=== PATIENT | female | born 1985 | race Caucasian/White ===

== ENCOUNTER → 2017-11-27 21:26 | Outpatient (CLI) | payer OTHER, SELFPAY ==
[2017-11-27 21:51] LABS: Anion Gap 5 (5-15); BUN 10 mg/dL (7-18); BUN/Creat Ratio 13.5 RATIO (10-20); Calcium,Total 9.1 mg/dL (8.5-10.1); Chloride 101 mmol/L (98-107); Creatinine, Serum 0.74 mg/dL (0.55-1.02); EST Glomerular Filtration Rate 98 mL/min (>60); Est Glom Filt Rate - Afr Amer 118 mL/min (>60); Glucose 83 mg/dL (74-106); Potassium 4.2 mmol/L (3.5-5.1); Sodium Level 137 mmol/L (136-145)
== END ==
PROVIDERS: Visit Provider Nurse Practitioner
DX: I10 Essential (primary) hypertension (principal)
CPT/HCPCS: 80048

== ENCOUNTER 2017-12-10 20:34 | Emergency (ER) | payer OTHER, SELFPAY ==
[2017-12-10 20:36] VITALS: BP 161/105; PULSE 94; RESP 17; TEMP 36.9; O2SAT 100; BMI 30.9
--- NOTE | 2017-12-10 20:42 | ED.RN ---
NO OLD EKG'S IN MUSE
[2017-12-10 20:57] VITALS: O2SAT 95
[2017-12-10 21:06] LABS: Absolute Lymphocyte Count 2.92 X10^3/ul (0.83-4.51); Absolute Neutrophil Count 5.6 X10^3/uL (2.0-7.7); Basophil# 0.04 X10^3/uL; Basophil% 0.4 % (0-1); Eosinophil# 0.08 X10^3/uL; Eosinophils% 0.9 % (0-5); Hematocrit 39.3 % (37-47); Hemoglobin 12.4 g/dl (12.0-15.0); Lymphocyte # 2.92 X10^3/ul (4.0); Mean Corp Hgb Conc 31.6 g/gl (32-36); Mean Corpuscular Hgb 28.8 pg (27.0-32.0); Mean Corpuscular Volume 91.4 fL (81-99); Mean Platelet Vol. 9.6 fl (6.2-12.0); Monocyte# 0.49 X10^3/uL; Monocyte% 5.4 % (0-10); Neutrophil # 5.58 X10^3/uL (2.7-7.7); Neutrophil % 61.2 % (47-70); Platelet Count 400 K/mm3 (150-450); RBC Distribution Width CV 13.6 % (11.6-14.6); RBC Distribution Width SD 45.2 fl (35.1-43.9); White Blood Count 9.1 K/mm3 (4.4-11.0)
[2017-12-10 21:07] LABS: POSITIVE COUNT NO; POSITIVE DIFFERENTIAL NO; POSITIVE MORPHOLOGY NO
[2017-12-10 21:19] LABS: Anion Gap 7 (5-15); BUN 9 mg/dL (7-18); BUN/Creat Ratio 11.1 RATIO (10-20); Calcium,Total 8.9 mg/dL (8.5-10.1); Chloride 104 mmol/L (98-107); Creatinine, Serum 0.81 mg/dL (0.55-1.02); EST Glomerular Filtration Rate 88 mL/min (>60); Est Glom Filt Rate - Afr Amer 107 mL/min (>60); Estimated Creatinine Clearance 91.38 ml/min; Glucose 93 mg/dL (74-106); Potassium 3.4 mmol/L (3.5-5.1); Sodium Level 139 mmol/L (136-145)
[2017-12-10 21:35] VITALS: BP 142/74; PULSE 82; RESP 15; O2SAT 99
[2017-12-10 22:00] VITALS: BP 133/79; PULSE 75; RESP 15; O2SAT 99
[2017-12-10 22:00] LABS: D-Dimer Quantitative (DVT/PE) < 0.27 FEU/ug/m (0.27-0.49)
--- NOTE | 2017-12-10 22:36 | ED.VISSUMM ---
- ER Visit Summary Date of Service: 12/10/17 Chief Complaint: Chest pain History of Present Illness: The patient is a 32 F with intermittent chest pain over the past 5 days. Patient states she was prescribed lisinopril on Saturday, and symptoms started after that first dose. She only took that one dose. Patient describes intermittent pressure sensation with occasional sharp pain up through the sternal area. She does seem to get short of breath when this occurs. It can occur with activity or at rest. She has had periods over the past 5 days when she is completely pain-free as well. Patient does note she has had more reflux symptoms over the past several days as well. Physical Examination: Blood pressure in triage is 161/105, but at the time of my examination blood pressure is 138/78. Vital signs are otherwise unremarkable. Patient is in no acute distress and is nontoxic appearing. Head and neck examination is normal. Heart is regular rate and rhythm. Palpable pulses are noted throughout. Lungs are clear with good air movement throughout. Abdomen is soft and nontender. Bowel sounds are noted. Extremity examination is unremarkable with full range of motion. Neurologic examination reveals no focal deficits. Test Results: EKG is sinus at 90 with no sign of acute ischemia. Chest x-ray normal. CBC and chemistry studies significant only for potassium of 3.4. Troponin and d-dimer are both negative. Emergency Department Course and Treatment: Test results were discussed with her. At this time we will treat her for reflux to see if that improves her symptoms. This may or may not have anything to do with the lisinopril that she took 5 days ago. She was encouraged to speak with her nurse practitioner before resuming this. She is given a single dose of potassium replacement here and a dose of Pepcid. A prescription for Pepcid has been provided. Treatment Plan: [] Disposition: Discharge Impression: Atypical chest pain This note was generated with [employer] dictation software. It may contain incorrect words, spelling, and punctuation that were not noted in review of the chart prior to signing ED Disposition - Plan for ED Patient: Disposition: Home or Assisted Living Chief Complaint: Chest Pain Instructions: ED Chest Pain Atypical Unkn Cause Prescriptions: Famotidine [Pepcid] 20 mg PO BID #28 tablet Referrals: Clementina Mix NP-C [Primary Care Provider] - 1 Week
[2017-12-10 22:52] VITALS: BP 118/87; PULSE 69; RESP 13; O2SAT 100
[2017-12-10] MEDS: Famotidine 20 MG Tablet 40 MG PO (22:53)
== END 2017-12-10 22:57 | disposition home or self-care (01) ==
PROVIDERS: Emergency Provider Emergency Medicine; Family Provider Nurse Practitioner; PCP Nurse Practitioner
DX: R07.89 Other chest pain (principal); I10 Essential (primary) hypertension; Z72.0 Tobacco use
CPT/HCPCS: 71045; 80048; 84484; 85025; 85379; 93005; 99285

== ENCOUNTER → 2018-02-18 16:45 | Outpatient (CLI) | payer OTHER, SELFPAY ==
[2018-02-22 14:06] LABS: HPV HC, High Risk Negative (Negative)
== END ==
PROVIDERS: Visit Provider Obstetrics & Gynecology
DX: Z12.72 Encounter for screening for malignant neoplasm of vagina (principal)
CPT/HCPCS: 87624; 88175; G0145

== ENCOUNTER → 2018-02-27 22:23 | Outpatient (CLI) | payer OTHER, SELFPAY ==
[2018-02-27 23:02] LABS: Anion Gap 6 (5-15); BUN 14 mg/dL (7-18); BUN/Creat Ratio 14.6 RATIO (10-20); Calcium,Total 8.4 mg/dL (8.5-10.1); Chloride 103 mmol/L (98-107); Creatinine, Serum 0.96 mg/dL (0.55-1.02); EST Glomerular Filtration Rate 73 mL/min (>60); Est Glom Filt Rate - Afr Amer 88 mL/min (>60); Glucose 86 mg/dL (74-106); Potassium 3.9 mmol/L (3.5-5.1); Sodium Level 137 mmol/L (136-145)
== END ==
PROVIDERS: Referring Provider Nurse Practitioner; Visit Provider Nurse Practitioner
DX: I10 Essential (primary) hypertension (principal)
CPT/HCPCS: 80048

== ENCOUNTER 2018-04-29 19:07 | Emergency (ER) | payer OTHER, SELFPAY ==
[2018-04-03 19:09] VITALS: BMI 32.9
[2018-04-29 19:09] VITALS: PULSE 75; RESP 16; TEMP 36.8; O2SAT 98; BMI 32.5
--- NOTE | 2018-04-29 19:28 | ED.DCSUM_ITS ---
- ER Visit Summary Date of Service: 04/29/18 Chief Complaint: Headache History of Present Illness: The patient is a 32 F presents to the emergency department with cough, nasal congestion, and frontal headache. The patient was recently diagnosed with otitis media 3 weeks ago. She came off antibiotics about 10 days ago. She states that she began to have increasing frontal facial fullness, nasal drainage, and cough again 3 days ago. She states she has had fever at home. She describes a pain behind her left eye. She denies any visual change. She denies any neck pain. She has no history of immunosuppression. Physical Examination: Well-appearing patient is in no acute distress. Head is normocephalic, atraumatic. Pupils equal round reactive, extraocular muscles intact. There is no temporal artery tenderness. There is no vesicular rash. There is tenderness with palpation over the frontal sinus. Neck supple. Kernig's and Brudzinski's are negative. Heart regular rate and rhythm. Lungs clear, chest nontender. Abdomen soft, nontender, nondistended. Neuro exam dis plays no focal or lateralizing deficit. 2+ symmetric lower extremity reflexes. No clonus. No ataxia or gait abnormality. Test Results: [] Emergency Department Course and Treatment: The patient's examination is very comforting. I do feel that she likely has an acute sinusitis. She had symptoms for 10 days have been worsening. She does have frontal sinus tenderness, nasal congestion, and fever. I am going to treat with Augmentin and prednisone. She is counseled concerning symptoms and reasons to return. The patient be dis charged home. Treatment Plan: [] Disposition: Discharge Impression: Acute sinusitis This note was generated with [employer] dictation software. It may contain incorrect words, spelling, and punctuation that were not noted in review of the chart prior to signing ED Disposition - Plan for ED Patient: Chief Complaint: Headache Instructions: ED Headache Sinus Prescriptions: Amox/Clavulanate Tablet [Augmentin Tablet] 875 mg PO Q12H #20 tab Prednisone [Deltasone] 40 mg PO DAILY #10 tab Referrals: Care Physician,No Primary [Primary Care Provider] -
[2018-04-29] MEDS: Amox/Clavulanate 875 MG Tablet PO (19:34)
[2018-04-29] MEDS: predniSONE 20 MG Tablet 40 MG PO (19:34)
[2018-04-29 19:35] VITALS: PULSE 81; RESP 18; TEMP 36.6
== END 2018-04-29 19:40 | disposition home or self-care (01) ==
LOC: ED 19:38
PROVIDERS: Emergency Provider Emergency Medicine
DX: J01.10 Acute frontal sinusitis, unspecified (principal); I10 Essential (primary) hypertension; Z72.0 Tobacco use
CPT/HCPCS: 99284

== ENCOUNTER 2019-03-23 18:04 | Emergency (ER) | payer OTHER, SELFPAY ==
[2018-10-07 18:17] VITALS: BMI 33.3
[2019-03-23 18:05] VITALS: BP 173/91; PULSE 79; RESP 16; TEMP 36.7; O2SAT 100; BMI 34.0
--- NOTE | 2019-03-23 19:15 | CT_ITS ---
STUDY: CT BRAIN WITHOUT CONTRAST REASON FOR EXAM: Female, 33 years old. Headache facial numbness RADIATION DOSAGE (If Supplied By Facility): CTDIvol = ( 44.99 ) mGy, DLP = ( 745.49 ) mGycm TECHNIQUE: Transaxial CT imaging of the brain was performed without administration of intravenous contrast material. Individualized dose optimization techniques were used for this CT. COMPARISON: No relevant priors. FINDINGS: Brain parenchyma is without focal lesions, mass effect, acute intracranial hemorrhage, extra parenchymal fluid collections, hydrocephalus or herniation. The skull is intact. CT/Brain/Head without Contrast IMPRESSION: 1. Normal CT brain. Electronically Signed: Darek Herrera, at 19:47 EST Tel , Service support ,
[2019-03-23 19:44] LABS: Absolute Lymphocyte Count 3.07 X10^3/uL (0.83-4.51); Absolute Neutrophil Count 5.9 X10^3/uL (2.0-7.7); Basophil# 0.07 X10^3/uL; Basophil% 0.7 % (0-1); Eosinophil# 0.05 X10^3/uL; Eosinophils% 0.5 % (0-5); Hemoglobin 13.8 g/dL (12.0-15.0); Lymphocyte # 3.07 X10^3/ul (4.0); Lymphocyte % 31.9 % (19-41); Mean Corp Hgb Conc 32.1 g/dL (32-36); Mean Corpuscular Hgb 29.1 pg (27.0-32.0); Mean Corpuscular Volume 90.5 fL (81-99); Mean Platelet Vol. 10.2 fl (6.2-12.0); Monocyte# 0.54 X10^3/uL; Monocyte% 5.6 % (0-10); NRBC Flagged by Analyzer 0 % (0-5); Neutrophil # 5.86 X10^3/uL (2.7-7.7); Neutrophil % 61.1 % (47-70); Platelet Count 358 K/mm3 (150-450); RBC Distribution Width CV 13.2 % (11.6-14.6); RBC Distribution Width SD 43.8 fl (35.1-43.9); Red Blood Count 4.75 M/mm3 (4.2-5.4); White Blood Count 9.6 K/mm3 (4.4-11.0)
[2019-03-23 19:57] LABS: Internal QC Validated? YES +Cl - CLEAR BKGD; Pregnancy, Serum, hCG Quali. NEGATIVE Negative
[2019-03-23 20:06] LABS: Anion Gap 7 (5-15); BUN 7 mg/dL (7-18); BUN/Creat Ratio 9.8 RATIO (10-20); Calcium,Total 9.3 mg/dL (8.5-10.1); Chloride 106 mmol/L (98-107); Creatinine, Serum 0.72 mg/dL (0.55-1.02); EST Glomerular Filtration Rate 101 mL/min (>60); Est Glom Filt Rate - Afr Amer 122 mL/min (>60); Estimated Creatinine Clearance 97.76 ml/min; Glucose 86 mg/dL (74-106); Potassium 3.6 mmol/L (3.5-5.1); Sodium Level 139 mmol/L (136-145); Thyroid Stim Hormone (TSH) 2.97 uIU/mL (0.358-3.74)
--- NOTE | 2019-03-23 20:28 | ED.VISSUMM ---
- ER Visit Summary Date of Service: 03/23/19 Chief Complaint: Numbness History of Present Illness: The patient is a 33 F with complaints of numbness. She describes it as a tingling sensation in her arms, legs and face bilaterally. Symptoms all started around 6 AM at the same time. She never had this before. Nothing seemed to bring it on or make it worse. Nothing seems to make it better. She has been having headaches for the last 2 weeks. She does not have a history of headaches. Denies trauma. Denies any other symptoms like neck pain, facial droop, weakness, speech changes, or vision changes. Physical Examination: Blood pressure 173/91. Otherwise vitals normal. Alert and oriented. Head and neck atraumatic. Cranial nerves grossly intact. Heart regular. Lungs clear. Moves all extremities. Good strength. Subjective paresthesias in all extremities and her face. Test Results: CBC, BMP, magnesium, TSH, hCG all unremarkable. CT brain was normal. Emergency Department Course and Treatment: Patient presents with diffuse paresthesias. Her work-up is unremarkable. There are no red flag features, focal symptoms, or any other concerning findings. She will be discharged for outpatient work-up. Return for any new or worsening issues. Treatment Plan: As above Disposition: Discharge Impression: 1. Paresthesias This note was generated with [employer] dictation software. It may contain incorrect words, spelling, and punctuation that were not noted in review of the chart prior to signing ED Disposition - Plan for ED Patient: Referrals: Care Physician,No Primary [Primary Care Provider] -
--- NOTE | 2019-03-23 20:32 | ED.DEP ---
ED Disposition - Plan for ED Patient: Instructions: Paraesthesias Referrals: Melody Cobian [NON-STAFF] -
== END 2019-03-23 20:56 | disposition home or self-care (01) ==
LOC: ED 19:10
PROVIDERS: Emergency Provider Emergency Medicine
DX: R20.2 Paresthesia of skin (principal); F17.200 Nicotine dependence, unspecified, uncomplicated
CPT/HCPCS: 70450; 80048; 83735; 84443; 84703; 85025; 99283; A4216

== ENCOUNTER 2020-10-04 19:39 | Emergency (ER) | payer OTHER, SELFPAY ==
[2020-10-04 19:40] VITALS: BP 144/88; PULSE 77; RESP 16; TEMP 36.8; O2SAT 99; BMI 27.9
--- NOTE | 2020-10-04 20:24 | RAD_ITS ---
HISTORY: Trauma, injury EXAMINATION/TECHNIQUE: XR Spine Lumbar 2 or 3 Views: 3 views COMPARISON: None FINDINGS: VERTEBRAE: Preserved vertebral body height. No acute fracture. No spondylolisthesis. Preservation of the normal lumbar lordosis. DISCS: Disc spaces are maintained. INCLUDED ABDOMEN: Included bowel gas pattern is non-obstructive. RAD/Lumbar Spine 2 or 3 Views IMPRESSION: No acute findings. at 2146 Reported and signed by: Kevyn Ventura MD Electronically Signed: Kevyn Ventura MD at 21:45 EDT Tel , Service support ,
--- NOTE | 2020-10-04 20:24 | CT_ITS ---
HISTORY: Trauma, injury TECHNIQUE: Multiple axial images were obtained of the brain without intravenous contrast. A radiation dose optimization technique was used for this scan. IV Contrast dosage and agent: None. COMPARISON: None FINDINGS: # of images incl. paperwork: 226 PARANASAL SINUSES AND MASTOID AIR CELLS: Right maxillary sinus mucous retention cysts. INTRACRANIAL HEMORRHAGE: None. BRAIN PARENCHYMA: No CT evidence of stroke. No intracranial masses. There is preservation of the baxter/white matter interface. Posterior fossa structures are unremarkable. CSF SPACES: Appropriate for age. There is no hydrocephalus. MASS EFFECT: None. CALVARIUM: Intact. CT/Brain/Head without Contrast IMPRESSION: No acute intracranial findings. Individualized dose optimization techniques were used for this CT. at 2145 Reported and signed by: Kevyn Ventura MD Electronically Signed: Kevyn Ventura MD at 21:44 EDT Tel , Service support ,
--- NOTE | 2020-10-04 23:29 | EX.ED.DYSGE1 ---
HPI History of Present Illness Chief Complaint: Head Injury Informant: patient Narrative Narrative: 34-year-old female was at work tonight when she slipped on wet floor struck the back of her head and then her lower back/buttocks. She notes a headache and noted that her vision seems a bit blurry. She notes nausea. She is able to ambulate. No vomiting. PFSH PFS Medical History Abuse of smoked substance Hypertension Migraine Allergy/AdvReac Type Severity Reaction Status Date / Time adhesive Allergy Rash Verified 03/23/19 18:05 lisinopril AdvReac Severe chest pain Verified 03/23/19 18:05 adn dizziness Family History Father Diabetes Heart disease Lung disease Uncle Leukemia Mother Cancer Uterine cancer Surgical History Adenoid Removed cyst on throught removed History of surgical removal of pilonidal cyst Social History (Updated 10/04/20 @ 23:[address] Chris Marc DO) Smoking Status: Current every day smoker tobacco type: cigarettes substance use type: does not use ROS ROS ED Constitutional Constitutional ED: Denies chills or weight loss Eyes Eyes: Denies change in vision or diplopia ENT ENT ED: Denies ear pain, rhinorrhea or sore throat Cardiovascular Cardiovascular: Denies chest pain, orthopnea, palpitations or racing heartbeat Respiratory/Chest Respiratory/Chest: Denies cough, dyspnea or orthopnea Gastrointestinal Gastrointestinal: Reports nausea; Denies abdominal pain, diarrhea or vomiting Genitourinary Genitourinary ED: Denies dysuria, hematuria or urinary frequency Musculoskeletal Musculoskeletal: Reports back pain; Denies arthralgias or myalgias Integumentary Denies abscess or rash Neurologic Neurologic: Reports headache(s); Denies weakness Psychiatric Psychiatric: Denies anxiety, depression, suicidal ideation or suicidal thoughts Endocrine Endocrinology: Denies polydipsia, polyphagia or polyuria Allergic/Immunologic Allergic/Immunologic ED: Denies mouth swelling, tongue swelling or urticaria EXAM Physical Exam Const Vital Signs: 10/04/20 19:40 10/04/20 20:11 Temperature 98.2 F Temperature Source Temporal Pulse Rate 77 Respiratory Rate 16 Respiratory Effort Normal Blood Pressure 144/88 H Blood Pressure Mean 106 Pulse Ox 99 Oxygen Delivery Method Room Air Positive well nourished and well developed General Appearance ED: well developed HEENT Reports normocephalic, head/scalp atraumatic and moist mucous membranes Eyes PERRL and EOMs intact bilaterally Neck no lymphadenopathy, supple and no JVD Resp normal respiratory effort and clear to auscultation bilaterally Cardio regular rate, regular rhythm and no murmurs GI normal to inspection, nondistended, normoactive bowel sounds and non-tender Palpation: soft Back/Spine no CVA tenderness and normal ROM Back/Spine Narrative: Tender to palpation of the lower lumbar/sacral Lumbar Spine / Lower Back: lumbar spinal tenderness Extremity normal to inspection General Extremety ED: Negative for edema General Extremity: Negative for edema Neuro oriented x3 and CN's II-XII intact bilaterally Sensorium / Orientation: alert Motor Exam: strength 5/5 throughout Psych mental status grossly normal Mood & Affect: Negative for depressed or tearful Skin no rashes or lesions noted and no wounds MDM MDM MDM Narrative Medical decision making narrative: My interpretation of the plain films lumbar spine is no acute process. CT the brain was negative. Patient will be discharged home with supportive care. Return if worsening or concerns Radiography Diagnostic Testing: Radiology Impression Brain CT 10/04/20 20:24 IMPRESSION: No acute intracranial findings. Individualized dose optimization techniques were used for this CT. at 2611 Reported and signed by: Kevyn Ventura MD Electronically Signed: Kevyn Ventura MD at 21:44 EDT Tel , Service support , Lumbar Spine X-Ray 10/04/20 20:24 IMPRESSION: No acute findings. at 2147 Reported and signed by: Kevyn Ventura MD Electronically Signed: Kevyn Ventura MD at 21:45 EDT Tel , Service support , Discharge Plan Triage Chief Complaint: Head Injury ED Provider: Chris Marc Dx/Rx/DC Orders Clinical Impression: Concussion, Lumbar contusion Instructions: ED Concussion, ED Back Contusion Primary Care Provider: Care Physician,No Primary Referrals: Corporate,Care [GROUP OF PHYSICIANS] - 1 Week Care Physician,No Primary [Primary Care Provider] - Disposition Disposition: Home, self care Discharge Date/Time: 10/04/20 22:13
== END 2020-10-04 22:13 | disposition home or self-care (01) ==
PROVIDERS: Emergency Provider Emergency Medicine
DX: S06.0X9A Concussion with loss of consciousness of unspecified duration, initial encounter (principal); S30.0XXA Contusion of lower back and pelvis, initial encounter; F17.210 Nicotine dependence, cigarettes, uncomplicated; W01.0XXA Fall on same level from slipping, tripping and stumbling without subsequent striking against object, initial encounter
CPT/HCPCS: 70450; 72100; 99282

== ENCOUNTER 2022-10-20 03:24 | Emergency (ER) | payer BC, SELFPAY ==
[2022-10-20 03:26] VITALS: BP 143/90; PULSE 106; RESP 18; TEMP 36.7; O2SAT 97; BMI 35.6
--- NOTE | 2022-10-20 03:35 | EDS_ITS ---
HPI HPI - URI History of Present Illness Chief Complaint: Sore Throat Detail of Chief Complaint: 24-hour history of sore throat. Subjective fever. Informant: patient Onset/Context/Timing Onset: Today and Yesterday Context: Gradual Onset Timing: Continuous Current Severity: Mild Maximum Severity: Mild Narrative Narrative: 36-year-old female Belle past medical history. Prior adenoid resection. States on Saturday developed a sore throat. Able to swallow. Subjective fever. Prior similar symptoms: Yes Recent Illness/Hospitalization: No ROS ROS ED ROS Narrative Sore throat. Subjective fever. Review of Systems ROS Unobtainable: Denies due to encephalopathy Constitutional Constitutional ED: Reports fever(s) and subjective Eyes Eyes: Denies blurry vision ENT ENT ED: Reports sore throat; Denies ear pain Cardiovascular Cardiovascular: Denies chest pain Respiratory/Chest Respiratory/Chest: Denies cough Gastrointestinal Gastrointestinal: Denies abdominal pain Genitourinary Genitourinary ED: Denies dysuria Musculoskeletal Musculoskeletal: Denies arthralgias Integumentary Denies abscess Neurologic Neurologic: Denies headache(s) Psychiatric Psychiatric: Denies anxiety Endocrine Endocrinology: Denies cold intolerance Hematologic/Lymphatic Hematologic/Lymphatic: Denies easy bleeding or easy bruising Allergic/Immunologic Allergic/Immunologic ED: Denies mouth swelling or tongue swelling PFSH PFSH Medical History Abuse of smoked substance Hypertension Migraine Home Medications amoxicillin 500 mg capsule 500 mg PO TID 7 days #21 caps 10/20/22 [Rx Last Taken Unknown] Allergy/AdvReac Type Severity Reaction Status Date / Time adhesive Allergy Rash Verified 10/20/22 03:25 lisinopril AdvReac Severe chest pain Verified 10/20/22 03:25 adn dizziness Family History Father Diabetes Heart disease Lung disease Uncle Leukemia Mother Cancer Uterine cancer Surgical History Adenoid Removed cyst on throught removed History of surgical removal of pilonidal cyst Social History Smoking Status: Current every day smoker tobacco type: cigarettes substance use type: does not use EXAM Physical Exam Narrative Exam Narrative: 35-year-old female no acute distress. Vital signs stable afebrile. H EENT exam TMs normal. Posterior pharynx erythematous with exudate. Tonsils are not touching. No stridor. Able to handle her own secretions. No drooling. No peritonsillar abscess. Neck trachea midline. Bilateral anterior chain lymphadenopathy. Lungs clear. Heart regular rhythm no murmur. Abdomen soft nontender. Moving all 4 extremities. No axillary lymphadenopathy. Neurologically awake and alert with no focal motor deficits. Const Vital Signs: 10/20/22 03:26 Temperature 98.1 F Temperature Source Temporal Pulse Rate 106 H Respiratory Rate 18 Blood Pressure 143/90 H Blood Pressure Mean 107 Pulse Ox 97 Oxygen Delivery Method Room Air Positive well nourished and well developed; Negative for cachectic or contractu res General Appearance ED: well developed and NAD; Negative for cachectic, contractures, cyanotic, diaphoretic or pallor Nutritional Appearance: Negative for cachectic HEENT Reports moist mucous membranes; Denies dry mucous membranes normocephalic and atraumatic; Negative for scalp tenderness Face and Sinus: Negative for sinus tenderness Mouth ED: No dry mucous membranes Mouth: No dry mucous membranes Teeth and Gingiva: Negative for caries Throat: tonsils abnormal and posterior oropharynx abnormal; Negative for posterior oropharynx normal Eyes PERRL and EOMs intact bilaterally General Eye ED: Negative for pale conjunctiva Neck No no lymphadenopathy, supple, no meningeal signs and no JVD General: lymphadenopathy Resp normal respiratory effort and clear to auscultation bilaterally Effort and Inspection: Negative for retractions Auscultation: Negative for rales, rhonchi or wheezes Cardio S1 normal heart sound, S2 normal heart sound and no murmurs Rate: regular rate Rhythm: regular rhythm GI non-tender and non-distended Inspection: Negative for abdominal distention Auscultation: normoactive bowel sounds Palpation: soft; Negative for tender or guarding Extremity normal to inspection and full ROM General Extremety ED: Negative for tenderness Neuro oriented x3 Sensorium / Orientation: alert, oriented to person, oriented to place and oriented to time; Negative for orientation impaired, lethargic or stuporous Motor Exam: strength 5/5 throughout Psych mental status grossly normal Appearance: Negative for other Attitude: No agitated Mood & Affect: Negative for depressed, anxious or tearful Skin General Skin Exam: Negative for jaundice or pallor Lesions: no lesions Rashes: no rashes Trauma: Negative for abrasion or laceration MDM MDM MDM Narrative Medical decision making narrative: 36-year-old female with posterior pharyngeal erythema with exudate. Anterior chain lymphadenopathy. No axillary lymphadenopathy. Exam consistent with strep throat. Discussed with patient she was not interested in rapid strep. She will be treated with amoxicillin 500 here. 500 3 times daily for 7 days. Warm salt water gargling. Motrin and Tylenol for pain and fever. Follow-up if not improving. Return if worse. History & Record Review Discussion w/independent historian: Patient Discharge Plan Triage Chief Complaint: Sore Throat ED Provider: Miguel A Sprague Dx/Rx/DC Orders Clinical Impression: Strep sore throat Instructions: ED Pharyngitis, Strep (Presumed) Prescriptions: New amoxicillin 500 mg capsule 500 mg PO TID 7 Days Qty: 21 0RF Primary Care Provider: Care Physician,No Primary Referrals: Dominik Amor MD [Med Staff - Pest Control Supervisor] - 3-5 Days if not improving Care Physician,No Primary [Primary Care Provider] - Activity Restrictions/Additional Instructions: Warm salt water gargling. Plenty of fluids and rest to prevent dehydration. Motrin and Tylenol for pain, fever and body aches. The amoxicillin 1 pill 3 times a day for 7 days. Follow-up with your doctor if not improving or return if worse. Disposition Disposition: Home, Self Care
[2022-10-20] MEDS: AMOXICILLIN 500 MG CAPSULE PO (03:47)
== END 2022-10-20 03:49 | disposition home or self-care (01) ==
LOC: ED 03:42
PROVIDERS: Emergency Provider Emergency Medicine; Visit Provider Emergency Medicine
DX: J02.0 Streptococcal pharyngitis (principal); F17.210 Nicotine dependence, cigarettes, uncomplicated
CPT/HCPCS: 99283